=== PATIENT | female | born 2000 | race Two or more races ===

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

== ENCOUNTER → 2021-01-24 14:04 | Outpatient (BNVA) | payer BC, MEDICAID, SELFPAY | PROVIDERS: PCP Family Medicine; Visit Provider Internal Medicine | DX: E10.649 Type 1 diabetes mellitus with hypoglycemia without coma (principal); G62.9 Polyneuropathy, unspecified | CPT/HCPCS: 99214 ==

== ENCOUNTER → 2021-05-24 15:41 | Outpatient (BNVA) | payer BC, MEDICAID, SELFPAY | PROVIDERS: PCP Family Medicine; Visit Provider Nurse Practitioner Women's Health | DX: R10.2 Pelvic and perineal pain (principal); R10.30 Lower abdominal pain, unspecified; Z30.46 Encounter for surveillance of implantable subdermal contraceptive | CPT/HCPCS: 81025; 87086; 87491; 87591; 87661 ==

== ENCOUNTER → 2021-07-10 10:01 | Outpatient (BNVA) | payer BC, MEDICAID, SELFPAY | PROVIDERS: PCP Family Medicine; Visit Provider Nurse Practitioner Women's Health | DX: Z30.46 Encounter for surveillance of implantable subdermal contraceptive (principal); R10.2 Pelvic and perineal pain; R10.30 Lower abdominal pain, unspecified | CPT/HCPCS: 76830; 87491; 87591; 87661 ==

== ENCOUNTER → 2022-02-06 10:05 | Outpatient (BNVA) | payer BC, MEDICAID, SELFPAY | PROVIDERS: PCP Family Medicine; Visit Provider Internal Medicine | DX: E10.649 Type 1 diabetes mellitus with hypoglycemia without coma (principal); E10.42 Type 1 diabetes mellitus with diabetic polyneuropathy; E78.2 Mixed hyperlipidemia; F17.200 Nicotine dependence, unspecified, uncomplicated; Z79.4 Long term (current) use of insulin | CPT/HCPCS: 80053; 80061; 82044; 83036; 84443; 99214 ==

== ENCOUNTER → 2022-04-10 10:59 | Outpatient (BNVA) | payer BC, MEDICAID, SELFPAY | PROVIDERS: PCP Family Medicine; Visit Provider Internal Medicine | DX: E10.649 Type 1 diabetes mellitus with hypoglycemia without coma (principal); E10.42 Type 1 diabetes mellitus with diabetic polyneuropathy; E78.2 Mixed hyperlipidemia; G62.9 Polyneuropathy, unspecified; F17.200 Nicotine dependence, unspecified, uncomplicated; Z79.4 Long term (current) use of insulin | CPT/HCPCS: 99214 ==

== ENCOUNTER → 2022-07-12 11:17 | Outpatient (BNVA) | payer BC, MEDICAID, SELFPAY | PROVIDERS: PCP Family Medicine; Visit Provider Internal Medicine | DX: E10.42 Type 1 diabetes mellitus with diabetic polyneuropathy (principal); E78.2 Mixed hyperlipidemia; Z79.4 Long term (current) use of insulin; E10.649 Type 1 diabetes mellitus with hypoglycemia without coma; F17.200 Nicotine dependence, unspecified, uncomplicated | CPT/HCPCS: 99214 ==

== ENCOUNTER → 2022-07-15 13:22 | Outpatient (BNVA) | payer BC, MEDICAID, SELFPAY | PROVIDERS: PCP Family Medicine; Visit Provider Internal Medicine | DX: E10.649 Type 1 diabetes mellitus with hypoglycemia without coma (principal); E10.65 Type 1 diabetes mellitus with hyperglycemia; E10.42 Type 1 diabetes mellitus with diabetic polyneuropathy; E78.2 Mixed hyperlipidemia; F17.200 Nicotine dependence, unspecified, uncomplicated | CPT/HCPCS: 99213 ==

== ENCOUNTER → 2022-12-04 14:50 | Outpatient (BNVA) | payer BC, MEDICAID, SELFPAY | PROVIDERS: PCP Family Medicine; Visit Provider Nurse Practitioner Women's Health | DX: Z12.4 Encounter for screening for malignant neoplasm of cervix (principal) | CPT/HCPCS: 88175 ==

== ENCOUNTER → 2023-09-30 15:22 | Outpatient (BNVA) | payer BC, MEDICAID, SELFPAY | PROVIDERS: PCP Family Medicine; Visit Provider Nurse Practitioner Women's Health | DX: Z30.9 Encounter for contraceptive management, unspecified (principal) | CPT/HCPCS: 81025 ==

== ENCOUNTER → 2024-04-06 10:27 | Outpatient (BNVA) | payer BC, MEDICAID, SELFPAY | PROVIDERS: PCP Family Medicine; Visit Provider Internal Medicine | DX: E10.649 Type 1 diabetes mellitus with hypoglycemia without coma (principal); E78.2 Mixed hyperlipidemia; G62.9 Polyneuropathy, unspecified | CPT/HCPCS: 80053; 80061; 82044; 83036 ==

== ENCOUNTER 2024-11-02 14:23 | Outpatient (CLI) | payer SELFPAY ==
[2024-11-02 15:18] LABS: Estmated Average Glucose 160; Hemoglobin A1C 7.2 % (4.0-6.0)
[2024-11-02 15:22] LABS: Alanine Aminotransferase 10 U/L (0-33); Albumin Level 4.3 g/dL (3.5-5.2); Alkaline Phosphatase 72 U/L (35-105); Aspartate Amino Transferase 18 U/L (0-32); Blood Urea Nitrogen 8 mg/dL (6-20); Calcium 9.5 mg/dL (8.5-10.5); Carbon Dioxide 24 mmol/L (22-29); Chloride 104 mmol/L (98-107); Chol HDL Ratio 2.38 mg/dL (0.0-4.40); Cholesterol 171 mg/dL (0-200); Globulin 2.8 g/dL (1.3-4.6); Glomerular Filtration Rate 152.9 mL/min (90-130); Glucose 113 mg/dL (65-115); HDL Cholesterol 72 mg/dL (60-100); LDL Cholesterol Calculated 91 mg/dL (50-129); LDL HDL Ratio 1.26 RATIO (0.00-3.22); Osmolality Calculated 287 mOsm/kg (285-295); Sodium 139 mmol/L (136-145); Total Bilirubin 0.3 mg/dL (0.15-1.2); Total Protein 7.1 g/dL (6.6-8.7); Triglycerides 42 mg/dL (0-150)
[2024-11-02 15:24] LABS: Anion Gap 15.2 (5-19); Potassium 4.2 mmol/L (3.5-5.1)
[2024-11-02 15:28] LABS: Creatinine Urine, Random 36 mg/dL (28-217); Microalbum Creatinine Ratio Ur 28 mg/dL (0-20); Microalbumin Random Urine 1 ug/dL (0-20)
== END 2024-11-02 14:24 | disposition home or self-care (01) ==
LOC: LAB 14:25
PROVIDERS: PCP Family Medicine; Visit Provider Internal Medicine
DX: E10.649 Type 1 diabetes mellitus with hypoglycemia without coma (principal)
CPT/HCPCS: 36415; 80053; 80061; 82044; 83036

== ENCOUNTER 2025-01-19 09:08 | Emergency (ER) | payer BC, MEDICAID, SELFPAY ==
[2025-01-19 09:17] VITALS: BP 100/62; PULSE 124; RESP 18; TEMP 36.6; O2SAT 98; BMI 25.7
[2025-01-19 09:19] LABS: Glucose Point of Care 146 mg/dL (70-110)
--- NOTE | 2025-01-19 09:37 | PC.PHAR ---
Pt has an insulin pump with the Omnipods that have insulin loaded in them. Pt has Novolog and Lantus Solostar as back up just in case insurance delays the refill of the Omnipods.
[2025-01-19 09:39] LABS: Basophils # 0.1 10^3/uL (0.0-0.1); Eosinophils # 0.1 10^3/uL (0.0-0.8); Eosinophils % 0.7 %; Hematocrit 43.3 % (36-47); Lymphocytes # 1.7 10^3/uL (0.8-4.8); Lymphocytes % 18.8 %; Mean Corpuscular HGB Conc 33.7 g/dL (30-55); Mean Corpuscular Hemoglobin 31.9 pg (27-33); Mean Corpuscular Volume 94.7 fl (85-98); Mean Platelet Volume 8.6 fL (7.4-10.4); Monocytes # 0.4 10^3/uL (0.2-0.9); Monocytes % 4.5 %; Neutrophils # 6.57 10^3/uL (1.8-7.7); Neutrophils % 74.7 %; Nucleated Red Blood Cells % 0 %; Platelet Count 449 10^3/cmm (157-399); Red Blood Count 4.57 10^6/uL (3.85-5.65); Red Cell Distribution Width 11.9 % (12.1-15.1); White Blood Count 8.81 10^3/uL (3.29-11.43)
--- NOTE | 2025-01-19 09:43 | ED_ITS ---
HPI - Recheck/Abnormal Lab/Rx 2 General: Chief Complaint: Recheck/Abnormal Lab/Rx Stated Complaint: high blood sugar during the night, n/v, weakness Time Seen by Provider: 01/19/25 09:21 Source: patient Mode of arrival: ambulatory Limitations: no limitations History of Present Illness: 24-year-old female with a history of typ e 1 diabetes she states that she had forgot to take her insulin last night woke up at 4 AM this having some vomiting and her meter read as high she states she took her Lantus she states she accidentally gave herself 40 units instead of 20. She states she is concerned she may have went to DKA blood sugars improved currently she states she went to get checked out she denies any pain or fevers Related Data Previous Rx's ?Medication ?Instructions ?Recorded blood-glucose meter,continuous #1 ea 04/10/22 (Dexcom G6 Inclusion Paraeducator) insulin aspart U-100 100 unit/mL 10 unit (0.1 mL) SUBC UT TID 90 03/09/24 subcutaneous solution (Novolog days #27 mL U-100 Insulin aspart) pen needle, diabetic 32 gauge x #100 ea 09/01/24 1/ (BD Ultra-Fine Micro Pen Needle) blood-glucose transmitter (Dexcom #2 ea 09/13/24 G6 Transmitter device) insulin glargine 100 unit/mL (3 30 unit (0.3 mL) SUBCU T DAILY #30 09/28/24 mL) subcutaneous pen (Lantus mL Solostar U-100 Insulin) blood-glucose sensor (Dexcom G6 #3 ea 12/15/24 Sensor device) insulin pump cart,automated,BT #30 ea 12/28/24 Allergies Allergy/AdvReac Type Severity Reaction Status Date / Time No Known Allergies Allergy Verified 01/13/25 12:08 Review of Systems 2 Const: Denies: fever(s), chills, body aches or change in appetite ENMT: Denies: throat pain or dental pain Card: Denies: chest pain Resp: Denies: dyspnea GI: Reports: nausea and vomiting; Denies: abdominal pain or diarrhea : Denies: dysuria Musc: Denies: neck pain or back pain Skin/Breast: Denies: rash Neuro: Denies: headache(s) Psych: Denies: depression Sebas/Lymph: Denies: easy bruising All/Imm: Denies: urticaria PFSH ED 2 PFSH: Medical History AVNRT (AV nima re-entry tachycardia) Diabetic ketoacidosis Type 1 diabetes mellitus Surgical History History of loop recorder (~10/2017) [facility] for her SVT; removed 04/2021-- see scanned intraoperative note [facility] of cardiac radiofrequency ablation (~2013) unknown year Family History Family/Other Family history of premature coronary artery disease Maternal aunt-- 32 [place] Mother Psychiatric illness Father Psychiatric illness Other Diabetes Denies family history of Colon cancer Ovarian cancer Heart disease Hypercholesteremia Breast cancer Hypertension Uterine cancer Thyroid disease Stroke Social History Smoking and tobacco/nicotine status: never used tobacco/nicotine Physical Exam 2 Const: COMMON NORMALS: no acute distress, patient oriented x3 and healthy appearing HENMT: COMMON NORMALS: normocephalic and atraumatic HEAD & SCALP: n ormocephalic and atraumatic Eye: COMMON NORMALS: conjunctivae normal CONJUNCTIVA: Yes conjunctivae normal Neck/C-Spine: COMMON NORMALS: full ROM and supple Chest: COMMONS NORMALS: normal inspection of the chest Resp: COMMON NORMALS: normal respiratory effort, No retractions, No use of accessory muscles and clear to auscultation bilaterally AUSCULTATION: clear to auscultation bilaterally Cardio: COMMON NORMALS: regular rhythm and No murmurs present (Cardio) R ATE: tachycardic RHYTHM: regular rhythm GI: COMMON NORMALS: Normal to inspection, nondistended, normoactive bowel sounds present, Soft to palpation, non-tender and no masses PALPATION: Yes Soft to palpation Extremity: COMMON NORMALS: normal to inspection and full ROM Neuro: COMMON NORMALS: patient oriented x3, moves all extremities and no focal motor deficits Psych: COMMON NORMALS: mental status grossly normal, Normal thought process present and cooperative THOUGHT PROCESS: Normal thought process present Skin: COMMON NORMALS: no rashes or lesions noted and no wounds GENERAL SKIN EXAM: no rashes or lesions noted Course 2 Vital Signs: Vital signs: Vital Signs Temperature 97.8 F 01/19/25 09:17 Pulse Rate 92 01/19/25 10:36 Respiratory Rate 18 01/19/25 09:17 Blood Pressure 99/65 01/19/25 10:36 Pulse Oximetry 99 01/19/25 10:36 Oxygen Delivery Me thod Room Air 01/19/25 10:36 MDM - Recheck/Abnormal Lab/Rx Medical Decision Making Patient presents here with hyperglycemia overnight she is not in DKA did observe her here her blood sugars been stable has not gotten too low here she stable for discharge follow-up PCP return if worsening. Medical Records I reviewed the patient's medical records. Lab Data I reviewed the patient's lab results. 01/19/25 09:28 01/19/25 09:28 Laboratory Results WBC 8.81 10^3/uL (3.29-11.43) 01/19/25 09: RBC 4.57 10^6/uL (3.85-5.65) 01/19/25 09:28 Hgb 14.60 g/dL (11.27-16.99) 01/19/25 09:28 Hct 43.3 % (36-47) 01/19/25 09:28 MCV 94.7 fl (85-98) 01/19/25 09:28 MCH 31.9 pg (27-33) 01/19/25 09: MCHC 33.7 g/dL (30-55) 01/19/25 09:28 RDW 11.9 % (12.1-15.1) L 01/19/25 09:28 Plt Count 449 10^3/cmm (157-399) H 01/19/25 09:28 MPV 8.6 fL (7.4-10.4) 01/19/25 09:28 Neut % (Auto) 74.7 % 01/19/25 09:28 Lymph % (Auto) 18.8 % 01/19/25 09:28 [place] % (Auto) 4.5 % 01/19/25 09:28 Eos % (Auto) 0.7 % 01/19/25 09:28 Baso % (Auto) 1.0 % 01/19/25 09:28 Neut # (Auto) 6.57 10^3/uL (1.8-7.7) 01/19/25 09:28 Lymph # (Auto) 1.7 10^3/uL (0.8-4.8) 01/19/25 09:28 [place] # (Auto) 0.4 10^3/uL (0.2-0.9) 01/19/25 09:28 Eos # (Auto) 0.1 10^3/uL (0.0-0.8) 01/19/25 09:28 Baso # (Auto) 0.1 10^3/uL (0.0-0.1) 01/19/25 09:28 Nucleated RBC % (auto) 0 % 01/19/25 09: Nucleated RBCs # 0.0 /100WBC 01/19/25 09:28 Specimen Type Arterial 01/19/25 09:48 Sample Site Radial, right 01/19/25 09:48 ABG pH 7.51 (7.35-7.45) H 01/19/25 09:48 ABG pCO2 25.5 mmHg (35-45) L 01/19/25 09:48 ABG pO2 63.9 mmHg (80.0-100.0) L 01/19/25 09:48 ABG PO2/FiO2 Ratio 304 01/19/25 09:48 ABG HCO3 20.1 mmol/L (22-26) L 01/19/25 09:48 ABG Base Excess -1.4 mmol/L (-2.0-2.0) 01/19/25 09:48 Shane Test Pos 01/19/25 09:48 Hematocrit 44.1 % (37-47) 01/19/25 09:48 O2 Delivery Device Room air 01/19/25 09:48 FiO2 21.0 % 01/19/25 09:48 Tool Maker ID [place] 01/19/25 09:48 Sodium 141 mmol/L (136-145) 01/19/25 09:28 Potassium 4.2 mmol/L (3.5-5.1) 01/19/25 09:28 Chloride 104 mmol/L (98-107) 01/19/25 09:28 Carbon Dioxide 20 mmol/L (22-29) L 01/19/25 09:28 Anion Gap 21.2 (5-19) H 01/19/25 09:28 BUN 17 mg/dL (6-20) 01/19/25 09:28 Creatinine 0.8 mg/dL (0.5-0.9) 01/19/25 09:28 GFR Calculation 88.9 mL/min (90-130) L 01/19/25 09:28 Glucose 144 mg/dL (65-115) H 01/19/25 09:28 POC Glucose 80 mg/dL (70-110) 01/19/25 11:34 Calculated Osmolality 296 mOsm/kg (285-295) H 01/19/25 09:28 Calcium 10.2 mg/dL (8.5-10.5) 01/19/25 09:28 Total Bilirubin 0.4 mg/dL (0.15-1.2) 01/19/25 09:28 AST 17 U/L (0-32) 01/19/25 09:28 ALT 13 U/L (0-33) 01/19/25 09:28 Alkaline Phosphatase 103 U/L (35-105) 01/19/25 09:28 Total Protein 7.7 g/dL (6.6-8.7) 01/19/25 09:28 Albumin 4.6 g/dL (3.5-5.2) 01/19/25 09:28 Globulin 3.1 g/dL (1.3-4.6) 01/19/25 09:28 Lipase 21 U/L (13-60) 01/19/25 09:28 HCG, Qual Negative (Negative) 01/19/25 09:28 All radiology interpretation(s) finalized by discharge Discharge Plan Discharge Patient Disposition: Home Clinical Impression: Hyperglycemia Condition: Stable Prescriptions: No Action (DME) Dexcom G6 Inclusion Paraeducator Misc See Rx Instructions .Route Qty: 1 0RF Rx Instructions: Check BS 4-6 times a day. Novolog U-100 Insulin aspart 100 unit/mL solution 10 unit SUBCUT TID 90 Days Qty: 27 3RF (DME) pen needle, diabetic [BD Ultra-Fine Micro Pen Needle] 32 gauge x 1/4 needle See Rx Instructions .ROUTE .MEDSUPPLY Qty: 100 3RF Rx Instructions: As directed (DME) Dexcom G6 Transmitter Device See Rx Instructions .Route Qty: 2 3RF Rx Instructions: Change every 90 days. insulin glargine [Lantus Solostar U-100 Insulin] 100 unit/mL (3 mL) insulin pen 30 unit SUBCUT DAILY Qty: 30 2RF (DME) Dexcom G6 Sensor Device See Rx Instructions .Route Qty: 3 0RF Rx Instructions: Change every 10 days. (DME) insulin pump cart,automated,BT Cartridge See Rx Instructions .ROUTE .MEDSUPPLY Qty: 30 1RF Rx Instructions: change pod every 3 days Discharge Orders: Discharge ED (Routine); Ordered 01/19/25 Ordered By: Berto Vick Referrals: Heraclio Livingston MD [Primary Care Provider] - 4-7 days Discharge Diet: Advance as tolerated Discharge Activity: Resume usual activity Patient Instructions: Diabetic Hyperglycemia (ED) Print Language: Salvadorean Coding Level of Care Code ED Air Value Tester for Juan Ellsworth
[2025-01-19 09:55] LABS: Alanine Aminotransferase 13 U/L (0-33); Albumin Level 4.6 g/dL (3.5-5.2); Alkaline Phosphatase 103 U/L (35-105); Anion Gap 21.2 (5-19); Aspartate Amino Transferase 17 U/L (0-32); Blood Urea Nitrogen 17 mg/dL (6-20); Calcium 10.2 mg/dL (8.5-10.5); Carbon Dioxide 20 mmol/L (22-29); Chloride 104 mmol/L (98-107); Creatinine Clr Calc Pharmacy 99.7062; Globulin 3.1 g/dL (1.3-4.6); Glomerular Filtration Rate 88.9 mL/min (90-130); Glucose 144 mg/dL (65-115); Lipase 21 U/L (13-60); Osmolality Calculated 296 mOsm/kg (285-295); Potassium 4.2 mmol/L (3.5-5.1); Sodium 141 mmol/L (136-145); Total Bilirubin 0.4 mg/dL (0.15-1.2); Total Protein 7.7 g/dL (6.6-8.7)
[2025-01-19 09:56] LABS: HCG, Serum Qual Negative (Negative)
[2025-01-19 09:59] LABS: ABG PCO2 25.5 mmHg (35-45); ABG PH Result 7.51 (7.35-7.45); Arterial Blood Gas Hematocrit 44.1 % (37-47); Base Excess ABG -1.4 mmol/L (-2.0-2.0); Blood Gas Allen Test Pos; Blood Gas Operator Identificat WALCI; Blood Gas Sample Site Radial, right; Blood Gas Sample Type Arterial; HCO3 ABG 20.1 mmol/L (22-26); Oxygen Device ROOM AIR; PO2 ABG 63.9 mmHg (80.0-100.0); PO2 FiO2 Ratio Arterial Blood 304
[2025-01-19 10:36] VITALS: BP 99/65; PULSE 92; O2SAT 99
[2025-01-19] MEDS: sodium chloride 0.9% 1,000 ML 999 ML IV (10:38)
[2025-01-19] MEDS: ondansetron 2 mg/ML SDV 2 mL 4 MG IVP (10:38)
[2025-01-19 10:43] LABS: Glucose Point of Care 90 mg/dL (70-110)
[2025-01-19 11:37] LABS: Glucose Point of Care 80 mg/dL (70-110)
[2025-01-19 12:08] VITALS: PULSE 101; O2SAT 99
== END 2025-01-19 12:11 | disposition home or self-care (01) ==
PROVIDERS: Emergency Provider Emergency Medicine; PCP Family Medicine
DX: E10.65 Type 1 diabetes mellitus with hyperglycemia (principal)
CPT/HCPCS: 36415; 36416; 36600; 80053; 82803; 82962; 83690; 84703; 85025; 96361; 96374; 99284; J2405; J7030

== ENCOUNTER → 2025-07-15 12:55 | Outpatient (BNVA) | payer BC, MEDICAID, SELFPAY | PROVIDERS: PCP Family Medicine; Visit Provider Internal Medicine | DX: E10.649 Type 1 diabetes mellitus with hypoglycemia without coma (principal) | CPT/HCPCS: 36415; 80053; 80061; 82044; 83036 ==